=== PATIENT | female | born 1995 | race Caucasian/White ===

== ENCOUNTER 2017-08-14 10:22 | Outpatient (CLI) | payer MEDICAID ==
[~2017-08-14] VITALS: Ht 167.6 cm; Wt 61.8 kg
[~2017-08-14 10:22] MED LIST: FLAGYL500 MG PO; MACROBID 1100 MG/CAP PO; MOTRIN 800800 MG/TAB PO; PERCOCET 325 MG1 TA2 PO
[2017-08-14 10:30] VITALS: BP 105/59; PULSE 61; TEMP 98.2
[2017-08-14 10:34] VITALS: BP 105/59; PULSE 61; TEMP 98.2
[2017-08-14 11:46] VITALS: BP 102/63; PULSE 60
[2017-08-14 12:39] LABS: PH 8 (5-8); SQUAMOUS EPITHELIAL 0-2 /hpf; URINE APPEARANCE Clear; URINE BACTERIA None Seen /hpf; URINE BILIRUBIN Negative (NEGATIVE); URINE BLOOD 1+ (NEGATIVE); URINE COLOR Yellow; URINE GLUCOSE Negative (NEGATIVE); URINE KETONE Negative (NEGATIVE); URINE UROBILINOGEN Negative (NEGATIVE); URINE WBC 0-2 /hpf
[2017-08-14 12:49] VITALS: BP 102/64; PULSE 62
[2017-08-14 13:41] VITALS: BP 100/56; PULSE 63
[2017-08-14 13:54] LABS: MEAN CELL VOLUME 88 fl (80.0-100.0); MEAN CORPUSCULAR HGB CONC 34 g/dl (33.0-37.0); MEAN PLATELET VOLUME 11.6 fl (7.4-10.4); PLATELET COUNT 173 K/mm3 (130-400); RED BLOOD COUNT 3.87 M/mm3 (4.10-5.30); REDCELL DISTRIBUTION WIDTH-CV 13.4 % (11.5-14.5); WHITE BLOOD COUNT 10.8 K/mm3 (4.8-10.8)
[2017-08-14 14:06] LABS: HEMATOCRIT 33.9 % (37.0-47.0); HEMOGLOBIN 11.5 g/dl (12.5-16.0); MEAN CORPUSCULAR HEMOGLOBIN 30 pg (27.0-31.0)
[2017-08-14 14:44] LABS: CHLAMYDIA/TRACH by PCR Female NOT DETECTED; NEISSERIA GON by PCR Female NOT DETECTED
== END 2017-08-14 13:45 | disposition home or self-care (01) ==
LOC: LDRO 10:22
PROVIDERS: Obstetrics & Gynecology
DX: O46.92 Antepartum hemorrhage, unspecified, second trimester (principal); O43.192 Other malformation of placenta, second trimester; Z3A.23 23 weeks gestation of pregnancy
CPT/HCPCS: J2791

== ENCOUNTER 2017-10-29 06:58 | Inpatient (IN) | payer MEDICAID ==
[~2017-10-29] VITALS: Ht 167.6 cm; Wt 72.3 kg
[2017-12-01] VITALS (43 sets, daily range): BP systolic 98–137; BP diastolic 53–78; PULSE 55–90; TEMP 97.4–98.2
[2017-12-01 07:52] LABS: BASO # 0.1 (0.0-0.2); BASO % 0.4 % (0.0-2.0); EOS # 0.2 (0.0-0.7); EOS % 1.9 % (0-4.0); GRAN # 8.6 (1.4-6.5); GRAN % 75.9 % (42.2-75.2); LYMPH # 1.6 (1.2-3.4); LYMPH % 14.3 % (20.0-51.0); MEAN CELL VOLUME 88 fl (80.0-100.0); MEAN CORPUSCULAR HGB CONC 33 g/dl (33.0-37.0); MEAN PLATELET VOLUME 12.6 fl (7.4-10.4); MONO # 0.8 (0.1-0.6); MONO % 6.6 % (1.7-9.3); PLATELET COUNT 138 K/mm3 (130-400); RED BLOOD COUNT 4.03 M/mm3 (4.10-5.30); REDCELL DISTRIBUTION WIDTH-CV 13.4 % (11.5-14.5)
[2017-12-01 07:57] LABS: HEMATOCRIT 35.5 % (37.0-47.0); HEMOGLOBIN 11.6 g/dl (12.5-16.0); MEAN CORPUSCULAR HEMOGLOBIN 29 pg (27.0-31.0)
[2017-12-01] MEDS ORDERED: MOTRIN 800800 MG/TAB PO (08:20)
[2017-12-01] MEDS ORDERED: PERCOCET 325 MG1 TA2 PO (08:20)
[2017-12-02 03:00] VITALS: BP 94/53; PULSE 55
[2017-12-02 08:00] VITALS: BP 96/69; PULSE 59
== END 2017-12-02 16:55 | disposition home or self-care (01) | DRG 775 ==
LOC: LDR 12-01 06:40 → OB 12-01 06:50 → LDR 12-01 06:50 → OB 12-01 19:00 → LDR 12-17 06:57
PROVIDERS: Obstetrics & Gynecology
PROC: 10E0XZZ Delivery of Products of Conception, External Approach (ICD-10-PCS; principal; 2017-12-01)
PROC: 3E033VJ Introduction of Other Hormone into Peripheral Vein, Percutaneous Approach (ICD-10-PCS; 2017-12-01)
PROC: 0HQ9XZZ Repair Perineum Skin, External Approach (ICD-10-PCS; 2017-12-01)
DX: O36.5930 Maternal care for other known or suspected poor fetal growth, third trimester, not applicable or unspecified (principal); O36.0130 Maternal care for anti-D [Rh] antibodies, third trimester, not applicable or unspecified; O76 Abnormality in fetal heart rate and rhythm complicating labor and delivery; O69.81X0 Labor and delivery complicated by cord around neck, without compression, not applicable or unspecified; O70.0 First degree perineal laceration during delivery; Z3A.39 39 weeks gestation of pregnancy; Z37.0 Single live birth
CPT/HCPCS: J2590; J7120

== ENCOUNTER 2019-08-26 07:24 | Inpatient (IN) | payer OTHER ==
[~2019-08-26] VITALS: Ht 165.1 cm; Wt 72.7 kg
[2019-08-26] VITALS (38 sets, daily range): BP systolic 10–123; BP diastolic 48–68; PULSE 48–113; TEMP 97.6–98.5
--- NOTE | 2019-08-26 06:58 | NUR ---
Patient ambulatory to LR5, changed into gown, FHR/TOCO placed and explained. Patient denies regular contractions, leaking of fluid, or vaginal bleeding. When asked if signifant other that is with her is FOB, patient states "he might be or my ex- might be" Plan of care discussed. 0715: IV started in left forearm, blood obtained and sent to lab, LR infusing. Assessment completed and consent forms gone over and signed. packet given. 0730: SVE-/-3 and white/milky discharge noted. Patient wedged to the left.
[~2019-08-26 07:24] MED LIST changes: +VALTREX 50500 MG/TAB PO
[2019-08-26 08:11] LABS: BASO # 0.1 (0.0-0.2); BASO % 0.5 % (0.0-2.0); EOS # 0.4 (0.0-0.7); EOS % 3.7 % (0-4.0); GRAN # 6.3 (1.4-6.5); GRAN % 65.5 % (42.2-75.2); LYMPH # 2.3 (1.2-3.4); LYMPH % 24.3 % (20.0-51.0); MEAN CELL VOLUME 84 fl (80.0-100.0); MEAN CORPUSCULAR HGB CONC 31 g/dl (33.0-37.0); MONO # 0.5 (0.1-0.6); MONO % 5.3 % (1.7-9.3); PLATELET COUNT 152 K/mm3 (130-400); RED BLOOD COUNT 3.73 M/mm3 (4.10-5.30); REDCELL DISTRIBUTION WIDTH-CV 14.6 % (11.5-14.5)
[2019-08-26 08:15] LABS: HEMATOCRIT 31.4 % (37.0-47.0); HEMOGLOBIN 9.8 g/dl (12.5-16.0); MEAN CORPUSCULAR HEMOGLOBIN 26 pg (27.0-31.0)
--- NOTE | 2019-08-26 08:40 | NUR ---
Dr Oliveira at bedside to assess patient and FHR strip. 0845: SVE per physician / and AROM at this time. Orders to continue increasing pitocin.
--- NOTE | 2019-08-26 13:15 | NUR ---
Patient requesting epidural and [employer] called and notified. Patient sitting on edge of bed. 1335: T.Eusebio at bedside for epidural placement. 1346: Test dose given and patient tolerates well. 1351: Patient repositioned to wedged right. Plan of care and precautions gone over.
--- NOTE | 2019-08-26 14:00 | NUR ---
1403: FHR baseline 130-140bpm and decreasing to 80-90bpm for approx. 3 minutes. Patient left lateral and SVE:3-4/80/-1. FHR tracing scalp stimulation into the 140s and quickly decreasing to 60-90bpm/pitocin off and oxygen on via mask at 10ml/hr. Patient right lateral. FHR in the 60-90bpm for approx 2.5 minutes and patient to knees/chest position. FHR gradually increasing to 135-140bpm. 1422: Dr. Oliveira called and updated and orders to turn pitocin back on at 10Mu now.
--- NOTE | 2019-08-26 14:30 | NUR ---
Mcdowell catheter placed and patient tolerates well. SVE-5/80/-1. Patient right lateral with left leg resting in stirrup. 1435: Oxygen off and pitocin started at 10mU. 1453: FHR baseline 130-140bpm. Variable decelerations noted. 1455: FHR decreasing to 70-90 bpm for 60 seconds. SVE-6/80/-1 and bloody show. FHR decreasing to 70bpm for 20-30 seconds, patient left lateral with right leg resting in stirrup and FHR increasing to 140bpm.
--- NOTE | 2019-08-26 15:42 | NUR ---
SVE-8/90/[address] Oliveira notified. 1555: Difficulty tracing FHR and monitor adjusted. SVE-/+2 and called and updated and on her way. Mcdowell catheter removed and patient tolerates well. FHR tracing variable decelerations and baseline 120-130bpm. 1605: Dr. Oliveira here and patient set up for vaginal delivery, bed taken apart and feet in footplates. Pericare done. Patient begins pushing with each contractions with Dr. Oliveira. Variable decelerations noted. 1610: Spontaneous vaginal delivery of head followed by body. to patient abdomen and Aki Pro RN assumes care of infant. Cord clamped by Dr. Oliveira and cut by FOB. Cord blood obtained. Dr. Oliveira repairs small laceration. 1613: Spontaneous delivery of placenta and pitocin bolus started per protocol. Fundal massage done/firm/bleeding WNL Patient repositioned and ice pack to perineum. Plan of care discussed.
[2019-08-26] MEDS ORDERED: MOTRIN 800800 MG/TAB PO (16:25)
--- NOTE | 2019-08-26 18:00 | NUR ---
Patient sits on edge of bed. Patient unable to walk and into wheelchair, to bathroom and on toilet and voids, pericare done. New gown/underwear/pad on. To room via wheelchair and assisted to bed. Plan of care discussed.
[2019-08-27 04:00] VITALS: BP 93/45; PULSE 70; TEMP 98.1
[2019-08-27 09:17] VITALS: BP 104/53; PULSE 73; TEMP 97.4
--- NOTE | 2019-08-27 09:50 | NUR ---
Initial visit; Mom thanked [employer] for offering congratulations for the of her daughter. [employer] thanked Mom for choosing our hospital and offered God's blessings to their family.
[2019-08-27 16:33] VITALS: BP 101/55; PULSE 68; TEMP 97.5
--- NOTE | 2019-08-27 20:10 | NUR ---
2000 home to self care after review of instrucitons and verbal underestanding
== END 2019-08-27 20:00 | disposition home or self-care (01) | DRG 807 ==
LOC: OB 07:24 → LDR 07:24 → OB 18:15
PROVIDERS: ADMIT Obstetrics & Gynecology
PROC: 10E0XZZ Delivery of Products of Conception, External Approach (ICD-10-PCS; principal; 2019-08-26)
PROC: 0UQMXZZ Repair Vulva, External Approach (ICD-10-PCS; 2019-08-26)
DX: O98.32 Other infections with a predominantly sexual mode of transmission complicating childbirth (principal); Z37.0 Single live birth; A60.00 Herpesviral infection of urogenital system, unspecified; Z3A.39 39 weeks gestation of pregnancy; O26.893 Other specified pregnancy related conditions, third trimester; Z67.91 Unspecified blood type, Rh negative; O99.02 Anemia complicating childbirth; O70.0 First degree perineal laceration during delivery
CPT/HCPCS: J2590; J7120